=== PATIENT | female | born 1935 | race Caucasian/White ===

== ENCOUNTER 2018-09-12 06:50 | Emergency (ER) | payer MEDICARE ==
[2018-09-12] MEDS ORDERED: Tranexamic Acid 1,000 MG/10 ML VIAL ONE ×2 (07:42→07:43)
--- NOTE | 2018-09-12 07:43 | CT ---
CT brain without contrast HISTORY: Altered mental status COMPARISON: None FINDINGS: Extensive acute subarachnoid hemorrhage is seen. There is accompanying mild prominence of the ventric ular system. No midline shift is seen. The bony canal is intact. IMPRESSION: Extensive acute subarachnoid hemorrhage. Discussed over the telephone with ER physician Dr. Sarah Lange at 7:35 AM
[2018-09-12 07:46] LABS: Actual Bicarbonate (HCO3a) 15.9 mEq/L (22-28); Analyzer IN Cardio ER; Base Excess (BEa) -9.5 mEq/L (-2.0 to +3.0); CO2 Tension 32.6 mmHg (35.0-45.0); Calcium, Ionized 0.97 mmol/L (1.12-1.30); Carboxyhemoglobin (COHb) 0.3 gm% (0.0-3.0); Hemoglobin (Hb) 9.7 g/dL (12.0-16.0); O2 Tension (PaO2) 69.7 mmHg (> 60.0); pH, Arterial 7.31 (7.35-7.45)
[2018-09-12 07:56] LABS: Puncture Site L.R.
[2018-09-12] MEDS ORDERED: Aminocaproic Acid 5 GM in Sodium Chloride 0.9% 250 ML 250 ML IV SCH (08:15)
--- NOTE | 2018-09-12 08:54 | CT ---
CT OF THE CERVICAL SPINE WITHOUT CONTRAST: HISTORY: Patient found unresponsive. CPR per family. TECHNIQUE: Multiple contiguous axial images were obtained in a CT of the cervical spine without contrast. Sagit jennifer and coronal reformats were performed. FINDINGS: Mild degenerative changes are seen in the cervical spine. The vertebral bodies demonstrate normal he ight and alignment without fracture or subluxation. An Endotracheal tube is visualized. No preverte bral soft tissue swelling is seen. The posterior facets are well aligned. Normal alignment of the skull base with the cervical spine is seen. There are increased interstitial lung markings in the lung apices. IMPRESSION: No evidence of acute osseous abnormality of the cervical spine. POS: [facility]
--- NOTE | 2018-09-12 16:21 | PRG ---
DATE OF SERVICE: 09/12/2018 SUBJECTIVE: The patient is seen and examined. The patient is an 82-year-old woman, who at 5 a.m. became suddenly unresponsive. She was evaluated in the emergency room at [facility] and then brought here to [facility]. She has not had 3 witnessed cardiac arrests. Currently, the patient has not received any confounding neurologic medications. She has no demonstrable neurologic function. Her pupils are 10 mm and nonreactive. Negative corneals. Negative Doll's. Negative gag. Not overbreathing the ventilator. She does not withdraw all [address] scan reveals massive subarachnoid hemorrhage diffusely with some loss of field-white differentiation. IMPRESSION AND PLAN: The patient has had a devastating subarachnoid hemorrhage. She has a loss of all brainstem reflexes. Her situation is not survival, and I discussed this at length with her family including her , son, and other associated family. They understand and concur with no aggressive measures at this time. The emergency room doctor then began a discussion about whether to continue resuscitation of the patient, which I expect will not be continued. Job ID: [id number]
[2018-09-12] MEDS ORDERED: EPINEPHrine 1 MG/10 ML Abboject SYRINGE ONE (18:00)
== END 2018-09-12 08:52 | disposition expired ==
LOC: ERS 06:50
DX: I46.9 Cardiac arrest, cause unspecified (principal); I60.9 Nontraumatic subarachnoid hemorrhage, unspecified; E11.9 Type 2 diabetes mellitus without complications; I10 Essential (primary) hypertension; Z86.73 Personal history of transient ischemic attack (TIA), and cerebral infarction without residual deficits; Z79.899 Other long term (current) drug therapy; Z79.84 Long term (current) use of oral hypoglycemic drugs
CPT/HCPCS: 70450; 72125; 82805; 92950; 93005; 94002; 96365; 96366; 96368; 96374; 96376; 99292; J0171; J7050; S0017